=== PATIENT | female | born 1995 | race Caucasian/White ===

== ENCOUNTER 2018-06-02 21:43 | Emergency (ER) | payer OTHER, BC ==
[2018-06-02] MEDS ORDERED: Metoclopramide HCl 10 MG/2 ML VIAL ONE (22:39)
[2018-06-02] MEDS ORDERED: diphenhydrAMINE 50 MG/ML VIAL ONE (22:39)
[2018-06-02] MEDS ORDERED: methylPREDNISolone Sod Succ/PF 125 MG/2 ML VIAL ONE (22:39)
[2018-06-02] MEDS ORDERED: Ketorolac Tromethamine 30 MG/ML VIAL ONE (22:39)
[2018-06-02] MEDS ORDERED: Water For Inject, Bacteriostat 30 ML ONE (22:40)
== END 2018-06-03 00:38 | disposition home or self-care (01) ==
LOC: SCSER 21:43
DX: R51 Headache (principal); Z79.899 Other long term (current) drug therapy
CPT/HCPCS: 96365; 96375; J1200; J1885; J2765; J2930

== ENCOUNTER 2018-09-14 12:35 | Emergency (ER) | payer OTHER ==
[2018-09-14] MEDS ORDERED: diphenhydrAMINE 50 MG/ML VIAL ONE (13:02)
[2018-09-14] MEDS ORDERED: Ketorolac Tromethamine 30 MG/ML VIAL ONE (13:02)
[2018-09-14] MEDS ORDERED: Metoclopramide HCl 10 MG/2 ML VIAL ONE (13:02)
[2018-09-14] MEDS ORDERED: methylPREDNISolone Sod Succ/PF 125 MG/2 ML VIAL ONE (13:02)
== END 2018-09-14 15:06 | disposition home or self-care (01) ==
LOC: SCSER 12:35
DX: G43.909 Migraine, unspecified, not intractable, without status migrainosus (principal); F32.9 Major depressive disorder, single episode, unspecified
CPT/HCPCS: 96365; 96375; J1200; J1885; J2765; J2930

== ENCOUNTER 2018-09-28 21:09 | Emergency (ER) | payer OTHER ==
[2018-09-28] MEDS ORDERED: Dexamethasone 4 MG TAB ONE (21:39)
[2018-09-28] MEDS ORDERED: Metoclopramide HCl 10 MG TAB ONE (21:39)
[2018-09-28] MEDS ORDERED: Ketorolac Tromethamine 30 MG/ML VIAL ONE (21:39)
[2018-09-28] MEDS ORDERED: diphenhydrAMINE 25 MG CAP ONE (21:39)
== END 2018-09-28 22:11 | disposition home or self-care (01) ==
LOC: SCSER 21:09
DX: J30.9 Allergic rhinitis, unspecified (principal); R51 Headache; F32.9 Major depressive disorder, single episode, unspecified; Z71.6 Tobacco abuse counseling
CPT/HCPCS: 96372; 99406; J1885; J8540; J8597; Q0163